=== PATIENT | male | born 1955 | race Caucasian/White ===

== ENCOUNTER → 2020-11-25 | Outpatient (CLI) | payer OTHER, MEDICARE ==
[~2020-11-25] MED LIST: ELIQUIS2.5 MG PO; OXYCODONE HCL 55 MG PO; ULTRAM 50MG TAB50 MG PO; XYOSTED50 MG/0.5 INJECTION
[2020-11-25 11:00] LABS: ABSOLUTE BASOPHILS 0.1 thou/uL (0.0-0.2); ABSOLUTE EOSINOPHILS 0.1 thou/uL (0.0-0.7); ABSOLUTE LYMPHOCYTES 1.1 thou/uL (0.8-5.3); ABSOLUTE MONOCYTES 0.8 thou/uL (0.0-1.2); ABSOLUTE NEUTROPHILS 3.7 thou/uL (1.6-8.1); BASOPHILS 1.2 %; EOSINOPHILS 2.1 %; HEMATOCRIT 44.7 % (42.0-52.0); LYMPHOCYTES 19.7 %; MCH 31.8 pg (26.0-34.0); MCHC 33.6 g/dL (28.0-37.0); MCV 94.6 fL (80.0-100.0); MONOCYTES 13.1 %; MPV 7.6 fl. (7.2-11.1); NUCLEATED RBCS 0 /100WBC; PLATELET COUNT* 249 thou/uL (150-400); POLYS 63.9 %; RBC 4.72 mil/uL (4.50-6.00); RDW-CV 13.6 % (10.5-14.5); WBC 5.8 thou/uL (4.0-11.0)
[2020-11-25 11:11] LABS: APTT 28.5 Seconds (25.0-31.3); PROTIME 10.7 Seconds (9.20-11.50)
[2020-11-25 11:13] LABS: ALBUMIN 3.8 g/dL (3.4-5.0); CALCIUM 9.7 mg/dL (8.5-10.1); CREATININE 0.8 mg/dL (0.6-1.3); POTASSIUM 4.4 mmol/L (3.5-5.1); TOTAL BILIRUBIN 1.4 mg/dL (<0.1-1.0); TOTAL PROTEIN 8.4 g/dL (6.4-8.2)
[2020-11-25 11:51] LABS: ESR (SEDRATE) 10 mm/hr (0-20)
--- NOTE | 2020-11-25 15:49 | EKG ---
[place] [address] ELECTROCARDIOGRAM REPORT Name: SONNY WEBSTER Room: [facility]#: [id number] Admission: 11/25/20 Attend Phys: Sonny Avery DO Discharge: Date of : 51 Date of Service: 11/25/20 1105 Report #: [id number] THIS REPORT FOR: //name// [facility] Test Date: 2020-11-25 Test Time: 11:05:01 Pat Name: SONNY WEBSTER Department: Room: Gender: Rn Occupational Health: : 1955 Requested By: Sonny Avery Order Number: [id number] Reading MD: Horacio Sims Measurements Intervals [place] Rate: 68 P: 54 MT: 185 QRS: 72 QRSD: 91 T: 70 QT: 375 QTc: 399 Interpretive Statements Sinus rhythm Consider left ventricular hypertrophy No previous ECG available for comparison Electronically Signed On 11-25-2020 15:48:53 CDT by Horacio Sims [email or web address] <ELECTRONICALLY SIGNED> By: Horacio Sims MD, [facility] 11/25/20 1548 D: [id number] Horacio Sims MD, FACC /EPI
== END ==
LOC: M.LAB 08:32
PROVIDERS: ATTEND Orthopaedic Surgery
DX: Z01.812 Encounter for preprocedural laboratory examination (principal); Z01.818 Encounter for other preprocedural examination; M16.11 Unilateral primary osteoarthritis, right hip; Z20.822 Contact with and (suspected) exposure to COVID-19

== ENCOUNTER → 2020-12-01 | Day surgery (SDC) | payer OTHER, MEDICARE ==
[~2020-12-01] VITALS: Ht 165 cm; Wt 74.8 kg
--- NOTE | ~2020-12-01 | H ---
[address] [address] HISTORY AND PHYSICAL Name: CARLOS WEBSTER Room: [address] [place]a [place]#: [id number] Admission: 12/01/20 Attend Phys: Su Mccoy Discharge: 12/01/20 Date of : 51 Report #: [id number] THIS REPORT FOR: cc: Petr Morris James DO [facility],Medical Records Staff ~ Please refer to the History and Physical performed in the physician's office. By: 0704Medical Records Staff ANAHI /JONATAN
[2020-12-01 06:39] VITALS: BP 148/100
[2020-12-01 11:36] VITALS: BP 148/100
--- NOTE | 2020-12-08 14:12 | OP ---
[address] [address] OPERATIVE REPORT Name: CARLOS WEBSTER Room: [address] [place]#: [id number] Admission: 12/01/20 Attend Phys: Su Mccoy Discharge: 12/01/20 Date of : 51 Report #: [id number] THIS REPORT FOR: cc: Petr Morris James DO Paul, Robert F. DO ~ DOC #: [id number] Carlos Avery DO DATE OF SURGERY: 10/03/2020 PREOPERATIVE DIAGNOSIS: Advanced degenerative joint disease, right hip. POSTOPERATIVE DIAGNOSIS: Advanced degenerative joint disease, right hip. PROCEDURE PERFORMED: Right total hip arthroplasty utilizing the Biomet Taperloc system with the following components: 1. Size 62 mm G7 acetabular shell. 2. Size 20 Taperloc Microplasty stem with high offset. 3. Size 40 mm ceramic head with -3 neck length. 4. A 40 mm high wall acetabular liner. 6. A 6.5 mm bone screws lengths 25 and 30. SURGEON: Carlos Avery DO. REFINISHER: ____. ANESTHESIA: General. ESTIMATED BLOOD LOSS: 250 mL SPECIMENS: None. COMPLICATIONS: None. DISPOSITION: Stable to PACU. ANTIBIOTICS: 2 grams IV Ancef preop. INDICATIONS: The patient is a 65-year-old male who was seen in clinic regarding right hip pain. His exam and imaging is consistent with advanced DJD. He tried and failed extensive conservative measures. He continues to have pain on daily basis, interfering with his ADLs. He was therefore recommended to undergo total hip arthroplasty. DESCRIPTION OF PROCEDURE: The patient was seen in the preoperative area. Written consent was obtained. The operative site was marked. [place] [address] OPERATIVE REPORT Name: CARLOS WEBSTER Room: [place] [address] [place]E [place]#: [id number] Admission: 12/01/20 Attend Phys: Su Mccoy Discharge: 12/01/20 Date of : 51 Report #: [id number] back to the operative suite, given benefit of a general anesthetic. He was placed on a well-padded [place] table. Both legs were padded and placed in the boots and subsequently into the spars. Right lower extremity was then prepped and draped in normal sterile fashion. A surgical timeout was performed, correct site, site of procedure were verified. All present were in agreement. The procedure began with a standard ASI incision. Sharp dissection through skin. We bovied down through the subcutaneous fat to the fascial layer. We used a new knife to make a joshua incision through the fascia and the remaining visualized fascia was released in line with the incision. We identified the appropriate interval. We also identified the superior and inferior neck. We pretreated the vascular branches with the Aquamantys followed by the Bovie. We placed our retractors appropriately around the femoral neck. We then performed standard capsulectomy. Our neck cut was made approximately 1 cm proximal to the lesser trochanter and a napkin ring cut was performed. The bone was removed. We placed retractors appropriately around the acetabulum. We utilized Bovie to remove any remaining labral tissue as well as tissue from the fovea. We sequentially reamed up to a 61, which gave us appropriate size. We then opened and impacted the final 62 mm acetabular liner with the appropriate version and inclination. We took imaging to confirm the appropriate positioning and seating of the implant. We then drilled and inserted the appropriate length screws. We placed a high wall liner in the anterior superior position. We then turned our attention to the femur with the appropriate retractors placed, externally rotated to 120 degrees. We performed appropriate releases. We dropped the leg to the floor and adducted maximally. We prepped the femur with the box osteotome followed by a rat tail rasp and sequentially broached up to a size 20. We trialed a high offset with a -3 neck length. Fluoroscopic images were obtained demonstrating the appropriate offset as well as stem size. The hip was checked for stability, which was excellent in all planes. Hip was dislocated and all trial components were removed. The wound was thoroughly irrigated. Vancomycin powder was placed in the wound. We then opened and impacted the size 20 Microplasty stem, which sat in a similar position. We therefore opened and impacted the 40 mm ceramic head with a -3 neck length. Hip was reduced and again taken through range of motion. It was found to be stable. Final fluoroscopic images were obtained and saved to the PACS system. Wound was thoroughly irrigated. Fascial layer was closed with #1 Vicryl in [id number] fashion. Throughout the procedure, orthopedic cocktail was injected around the surgical site. Subcutaneous layer was closed with 2-0 Vicryl in simple inverted interrupted fashion. Skin was reapproximated with a running 3-0 Stratafix and sterile skin glue. A Mepilex was placed. He was awoken from anesthesia and transferred to PACU in stable condition. There were no obvious complications. Needle, sponge count correct x [address] Avery was present for all critical aspects of the case. Carlos Avery, DO [facility] [address] OPERATIVE REPORT Name: CARLOS WEBSTER Room: [address] [place]#: [id number] Admission: 12/01/20 Attend Phys: Su Mccoy Discharge: 12/01/20 Date of : 51 Report #: [id number] <ELECTRONICALLY SIGNED> By: Carlos Avery DO 12/08/20 1412 1001 [id number] Avery DO /nt
== END | disposition home or self-care (01) ==
LOC: M.PRE → M.TBA 06:31 → M.SUR 06:31 → M.TBA 06:31 → M.PRE 08:32 → EDSTATUS 10:05 → M.PRE 10:48 → M.TBA 13:40
PROVIDERS: ATTEND Orthopaedic Surgery
DX: M16.11 Unilateral primary osteoarthritis, right hip (principal); M25.551 Pain in right hip; Z98.890 Other specified postprocedural states; Z79.899 Other long term (current) drug therapy; Z88.8 Allergy status to other drugs, medicaments and biological substances